=== PATIENT | female | born 1980 | race Caucasian/White ===

== ENCOUNTER 2018-01-03 07:56 | Outpatient (CLI) | payer BC ==
--- NOTE | 2018-01-03 10:42 | ULT ---
ABDOMINAL ULTRASOUND: HISTORY: Right-sided pain. TECHNIQUE: Multiple longitudinal and transverse images of the abdomen are obtained using a Multi-Hertz curviline ar transducer. Real-time and color-flow images are used to evaluate the abdomen. FINDINGS: The abdominal aorta and inferior vena cava are unremarkable. The liver is unremarkable with no evidence of masses or lesions. No evidence of intrahepatic biliary dilatation is seen. The common bile duct is of normal size, measuring 3.1 mm. The gallbladder is unremarkable. Normal hepatopetal flow is seen in the portal system. Both kidneys are unremarkable. The right kidney measures 11.1, and the left kidney 10.6 cm from pole to pole. No evidence of hydronephrosis or renal mass is seen. The spleen is unremarkable. The vis ualized portion of the pancreas is unremarkable. IMPRESSION: Normal abdominal ultrasound. No significant evidence of abdominal pathology is seen. POS: JOSEH
== END 2018-01-03 07:57 | disposition home or self-care (01) ==
LOC: SCSULT 07:56
PROVIDERS: ATTEND Family Medicine
DX: R10.11 Right upper quadrant pain (principal); R10.31 Right lower quadrant pain
CPT/HCPCS: 76700